=== PATIENT | male | born 1985 | race African-American/Black ===

== ENCOUNTER 2016-12-03 22:05 | Emergency (ER) | payer MEDICAID ==
[~2016-12-03] VITALS: Ht 170.2 cm; Wt 58.0 kg
[~2016-12-03 22:05] MED LIST: ALBU0.63 NEB; ALPR-475 PO; HYDR-3144 PO
[2016-12-03] MEDS ORDERED: LORazepam 1MG TABLET PO ONE (23:30)
[2016-12-03 23:47] LABS: ASPARTATE AMINO TRANSFERASE 23 U/L (15-37); BLOOD UREA NITROGEN 11 mg/dL (7-18)
[2016-12-04] MEDS ORDERED: LORazepam 1MG TABLET ONE (00:14)
[2016-12-04 00:33] LABS: DAU SCREEN DISCLAIMER
[2016-12-04 02:59] VITALS: BP 114/81
== END 2016-12-04 03:02 | disposition home or self-care (01) ==
LOC: ED 22:44
DX: F41.1 Generalized anxiety disorder (principal); E11.9 Type 2 diabetes mellitus without complications
CPT/HCPCS: 36415; 80053; 80307; 85025; 99284

== ENCOUNTER 2017-01-11 18:40 | Emergency (ER) | payer SELFPAY ==
[~2017-01-11] VITALS: Ht 170.2 cm; Wt 51.6 kg
[2017-01-11 18:42] VITALS: BP 108/72
[2017-01-11] MEDS ORDERED: METHOCARBAMOL 750 MG TABLET ONE (19:08)
[2017-01-11] MEDS ORDERED: KETOROLAC 30 MG/1 ML ONE (19:08)
[2017-01-11] MEDS ORDERED: METHOCARBAMOL 750 MG TABLET PO ONE (19:30)
[2017-01-11] MEDS ORDERED: KETOROLAC 30 MG/1 ML IM ONE (19:30)
== END 2017-01-11 20:00 | disposition home or self-care (01) ==
LOC: ED 19:09
DX: S39.012A Strain of muscle, fascia and tendon of lower back, initial encounter (principal); S29.012A Strain of muscle and tendon of back wall of thorax, initial encounter; E11.9 Type 2 diabetes mellitus without complications; X58.XXXA Exposure to other specified factors, initial encounter; Y93.89 Activity, other specified; Y99.8 Other external cause status; Y92.89 Other specified places as the place of occurrence of the external cause
CPT/HCPCS: 96372; 99283; J1885

== ENCOUNTER 2017-03-15 14:09 | Emergency (ER) | payer OTHER ==
[~2017-03-15] VITALS: Ht 172.7 cm; Wt 76.5 kg
[~2017-03-15 14:09] MED LIST changes: -HYDR-3144 PO; +HYDR-3245 PO
[2017-03-15] MEDS ORDERED: LORazepam 2 MG/ML, 1ML ONE (14:16)
[2017-03-15 14:23] VITALS: BP 125/74
[2017-03-15] MEDS ORDERED: LEVE10007 PO (14:29)
[2017-03-15] MEDS ORDERED: SODIUM CHLORIDE 0.9% 1,000ML IVBOLUS ONE (14:30)
[2017-03-15] MEDS ORDERED: LORazepam 2 MG/ML, 1ML IVPush ONE (14:30)
[2017-03-15] MEDS ORDERED: SODIUM CHLORIDE FLUSH 10ML SYR IVF ONE (14:30)
[2017-03-15 14:55] LABS: ASPARTATE AMINO TRANSFERASE 18 U/L (15-37); BLOOD UREA NITROGEN 7 mg/dL (7-18)
[2017-03-15] MEDS ORDERED: ALBUTEROL SULFATE 2.5 MG/3 ML ONE (15:00)
[2017-03-15] MEDS ORDERED: POTASSIUM CHLORIDE 20 MEQ TAB.ER.PRT PO ONE (15:00)
[2017-03-15] MEDS ORDERED: LEVETIRACETAM 500 MG TABLET PO ONE (15:00)
[2017-03-15] MEDS ORDERED: ALBUTEROL SULFATE 2.5 MG/3 ML NPPB ONE (15:00)
[2017-03-15 15:15] LABS: HEMATOCRIT 42.2 % (39.2-51.8); HEMOGLOBIN 14.1 g/dL (13.7-18.0); WHITE BLOOD COUNT 3.6 x10^3/uL (3.4-10)
[2017-03-15] MEDS ORDERED: POTASSIUM CHLORIDE 20 MEQ TAB.ER.PRT ONE (15:23)
== END 2017-03-15 17:14 | disposition home or self-care (01) ==
LOC: ED 14:41
DX: R56.9 Unspecified convulsions (principal); J45.901 Unspecified asthma with (acute) exacerbation
CPT/HCPCS: 36415; 71010; 80053; 81003; 85025; 93005; 94640; 96361; 96374; 99285; J2060; J7030; J7613

== ENCOUNTER 2017-04-09 07:09 | Emergency (ER) | payer MEDICAID, OTHER ==
[~2017-04-09] VITALS: Ht 172.7 cm; Wt 53.0 kg
[~2017-04-09 07:09] MED LIST changes: +LEVE10007 PO
[2017-04-09] MEDS ORDERED: SODIUM CHLORIDE 0.9% 1,000 ML IV ONE (07:17)
[2017-04-09] MEDS ORDERED: LEVETIRACETAM 500 MG in SODIUM CHLORIDE 0.9% 100 ML IV ONE (07:30)
[2017-04-09] MEDS ORDERED: SODIUM CHLORIDE FLUSH 10ML SYR IVF ONE (07:30)
[2017-04-09] MEDS ORDERED: DEXTROSE 50%, 50ML SYRINGE ONE (07:58)
[2017-04-09 08:00] LABS: BLOOD UREA NITROGEN 8 mg/dL (7-18)
[2017-04-09] MEDS ORDERED: DEXTROSE 50%, 50ML SYRINGE IVPush ONE (08:00)
[2017-04-09 09:42] VITALS: BP 119/59
== END 2017-04-09 10:42 | disposition home or self-care (01) ==
LOC: ED 09:18
DX: R56.9 Unspecified convulsions (principal); J45.909 Unspecified asthma, uncomplicated; G40.909 Epilepsy, unspecified, not intractable, without status epilepticus; E11.649 Type 2 diabetes mellitus with hypoglycemia without coma; Z90.49 Acquired absence of other specified parts of digestive tract
CPT/HCPCS: 36415; 80048; 80307; 82040; 82962; 93005; 96365; 96375; 99285; J1953; J7030; G0479

== ENCOUNTER 2017-04-18 10:30 | Emergency (ER) | payer MEDICAID ==
[~2017-04-18] VITALS: Ht 170.2 cm; Wt 52.0 kg
[2017-04-18 10:37] VITALS: BP 108/68
== END 2017-04-18 11:36 | disposition home or self-care (01) ==
LOC: ED 11:11
DX: Z76.0 Encounter for issue of repeat prescription (principal); J45.909 Unspecified asthma, uncomplicated; Z90.49 Acquired absence of other specified parts of digestive tract; G40.909 Epilepsy, unspecified, not intractable, without status epilepticus; E11.649 Type 2 diabetes mellitus with hypoglycemia without coma
CPT/HCPCS: 99283

== ENCOUNTER 2018-04-23 07:07 | Emergency (ER) | payer MEDICAID ==
[~2018-04-23] VITALS: Ht 170.2 cm; Wt 50.3 kg
[2018-04-23] MEDS ORDERED: HYDROcodone/APAP 5/325 TABLET PO ONE (08:30)
[2018-04-23] MEDS ORDERED: HYDROcodone/APAP 5/325 TABLET ONE (08:56)
[2018-04-23 09:51] VITALS: BP 106/70
== END 2018-04-23 09:53 | disposition home or self-care (01) ==
LOC: ED 09:22
DX: M25.571 Pain in right ankle and joints of right foot (principal); M25.572 Pain in left ankle and joints of left foot; E11.65 Type 2 diabetes mellitus with hyperglycemia; J45.909 Unspecified asthma, uncomplicated; Z87.891 Personal history of nicotine dependence
CPT/HCPCS: 99283

== ENCOUNTER 2018-04-24 07:50 | Emergency (ER) | payer MEDICAID ==
[~2018-04-24] VITALS: Ht 167.6 cm; Wt 51.1 kg
[2018-04-24 07:52] VITALS: BP 115/68
== END 2018-04-24 08:23 | disposition left against medical advice (07) ==
LOC: ED 08:03
DX: M25.572 Pain in left ankle and joints of left foot (principal); M25.571 Pain in right ankle and joints of right foot; G89.29 Other chronic pain; G40.909 Epilepsy, unspecified, not intractable, without status epilepticus; E11.9 Type 2 diabetes mellitus without complications; Z90.49 Acquired absence of other specified parts of digestive tract
CPT/HCPCS: 99281; 99284